=== PATIENT | female | born 1935 | race Caucasian/White ===

== ENCOUNTER 2018-03-16 09:00 | Inpatient (IN) ==
--- NOTE | 2018-03-16 09:27 | ED ---
HPI General Chief complaint: Weakness Stated complaint: General Weakness/Evac Time Seen by Provider: 03/16/18 09:14 History of Present Illness HPI narrative: Patient presents to the emergency department for generalized weakness. Daughter states that she was recently treated for UTI and finished antibiotics approximately 2 weeks ago. Daughter also states that she found her mother on the floor this morning and she has been progressively weak. Patient denies fall, and she lives alone. She denies chest pain, abdominal pain, shortness of breath, headache. States that on Friday she had a large amount of stool was brown, since resolved. Related Data Home Medications Medication Instructions Recorded Confirmed donepezil 5 mg PO DAILY 03/16/18 03/16/18 levothyroxine 25 mcg PO DAILY 03/16/18 03/16/18 lorazepam 1 mg PO HS 03/16/18 03/16/18 mirabegron [Myrbetriq] 25 mg PO HS 03/16/18 03/16/18 nebivolol 5 mg PO DAILY 03/16/18 03/16/18 olmesartan 40 mg PO DAILY 03/16/18 03/16/18 ranitidine HCl 150 mg PO DAILY 03/16/18 03/16/18 Allergies Allergy/AdvReac Type Severity Reaction Status Date / Time No Known Allergies Allergy Verified 03/16/18 09:23 Review of Systems ROS Unobtainable All other systems reviewed negative except as stated in HPI [facility] Medical History Medical History Anxiety (Acute) Dementia (Acute) Femur fracture, left (Acute) Hypertension (Acute) Hypothyroid (Acute) Urinary tract infection (Acute) Social History Social History Substance History: No History of Abuse Second Hand Smoke Exposure: Yes Smoking Status: Never smoker How Often Do You Have a Drink Containing Alcohol: 2 to 3 times a week Recent Travel in [facility] within the Last 8 Weeks: No Recent Out of Country Travel within the Last 8 Weeks: No Exam Narrative Exam Narrative: GENERAL: No acute distress SKIN: Focused skin assessment warm/dry. HEAD: Atraumatic. Normocephalic. EYES: Pupils equal and round. No scleral icterus. No injection or drainage. ENT: No nasal bleeding or discharge. Mucous membranes pink and moist. NECK: Trachea midline. No JVD. CARDIOVASCULAR: Regular rate and rhythm. No murmur appreciated. RESPIRATORY: No accessory muscle use. Clear to auscultation. Breath sounds equal bilaterally. GASTROINTESTINAL: Abdomen soft, non-tender, nondistended. Hepatic and splenic margins not palpable. MUSCULOSKELETAL: No obvious deformities. No clubbing. No cyanosis. No edema. NEUROLOGICAL: Awake and alert. No obvious cranial nerve deficits. Motor grossly within normal limits. Normal speech.Attempted to check strength bilat UE and LE but not able to fully assess secondary to patient effort. PSYCHIATRIC: Appropriate mood and affect; insight and judgment normal. Course Initial Documented Vital Signs Temperature 97.5 F L 03/16/18 09:06 Pulse Rate 72 03/16/18 09:06 Respiratory Rate 23 03/16/18 09:06 Blood Pressure 152/66 H 03/16/18 09:06 Pulse Oximetry 100 03/16/18 09:06 Last Documented Vital Signs Temperature 97.5 F L 03/16/18 09:06 Pulse Rate 66 03/16/18 12:22 Respiratory Rate 17 03/16/18 12:22 Blood Pressure 127/59 L 03/16/18 12:22 Pulse Oximetry 96 03/16/18 12:22 Medical Decision Making [facility] Narrative Medical decision making narrative: Patient presents to the emergency department with progressive generalized weakness. Patient placed on cardiac care unit nurse, continuous pulse ox, and IV access obtained. EKG, chest x-ray, head CT, labs ordered. Leukocytosis, decreased Hbg and HCT, elevated CK and MB, free T4 pending, ua negative. I have admitted the patient for observation. Blood cultures and lactic acid have been ordered and are pending at the time of admission, admit team to follow. Head CT negative for intracranial acute abnormality. Chest x-ray negative for acute abnormality. Lab Data Result diagrams: 03/16/18 09:40 03/16/18 10:24 Lab Results 03/16/18 03/16/18 03/16/18 Range/Units 09:40 10:24 10:29 WBC 13.4 H (4.0-11.0) th/mm3 RBC 4.01 (4.00-5.30) mil/mm3 Hgb 11.4 L (11.6-15.3) gm/dL Hct 33.9 L (35.0-46.0) % MCV 84.6 (80.0-100.0) fL MCH 28.4 (27.0-34.0) pg MCHC 33.6 (32.0-36.0) % RDW 14.5 (11.6-17.2) % Plt Count 391 (150-450) th/mm3 MPV 8.4 (7.0-11.0) fL Neut % (Auto) 80.4 H (16.0-70.0) % Lymph % (Auto) 8.0 L (9.0-44.0) % [place] % (Auto) 10.4 H (0.0-8.0) % Eos % (Auto) 0.4 (0.0-4.0) % Baso % (Auto) 0.8 (0.0-2.0) % Neut # (Auto) 10.8 H (1.8-7.7) th/mm3 Lymph # (Auto) 1.1 (1.0-4.8) th/mm3 [place] # (Auto) 1.4 H (0.0-0.9) th/mm3 Eos # (Auto) 0.1 (0.0-0.4) th/mm3 Baso # (Auto) 0.1 (0.0-0.2) th/mm3 WBC Differential . Differential Comment Auto diff final Sodium 129 L (136-145) meq/L Potassium 4.8 (3.5-5.1) meq/L Chloride 96 L (98-107) meq/L Carbon Dioxide 22.4 (21.0-32.0) meq/L Anion Gap 11 (5-15) meq/L BUN 13 (7-18) mg/dL Creatinine 0.67 (0.50-1.00) mg/dL Estimated GFR 84 L (>89) mL/min Random Glucose 86 (74-106) mg/dL Calcium 8.8 (8.5-10.1) mg/dL Magnesium 1.9 (1.5-2.5) mg/dL Total Bilirubin 0.4 (0.2-1.0) mg/dL AST 28 (15-37) U/L ALT 33 (10-53) U/L Alkaline Phosphatase 70 (45-117) U/L Total Creatine Kinase 262 H (26-192) U/L CK-MB (CK-2) 8.2 H (0.5-3.6) ng/mL CK-MB (CK-2) % 3.1 (0.0-4.0) % Troponin I Less than 0.02 L (0.02-0.05) ng/mL Total Protein 6.3 L (6.4-8.2) g/dL Albumin 3.1 L (3.4-5.0) g/dL TSH 2.910 (0.358-3.740) uIU/mL Urine Color Yellow (Yellw/Straw) Urine Clarity Clear (Clear) Urine pH 5.0 (5.0-8.5) Ur Specific [place] 1.012 (1.002-1.035) Urine Protein Negative (Neg-Trace) mg/dL Urine Glucose (UA) Negative (Negative) mg/dL Urine Ketones Negative (Negative) mg/dL Urine Occult Blood Negative (Negative) Urine Nitrate Negative (Negative) Urine Bilirubin Negative (Negative) Urine Urobilinogen Less than 2 (Less than 2) mg/dL Ur Leukocyte Esterase Negative (Negative) Urine RBC Less than 1 (0-3) /hpf Urine WBC 1 (0-5) /hpf Micro UA Comment Cath-culture not ind Urine Culture Comments Cath-cult not ind Imaging Data Radiologist's impression: Chest X-Ray 03/16/18 09:23 CONCLUSION: No acute cardiopulmonary process Head CT 03/16/18 09:23 CONCLUSION: Stable noncontrast head CT. No acute intracranial abnormality is identified. ECG Data Attestation: I personally reviewed and interpreted this ECG as follows: Discharge Plan Discharge Disposition Patient Disposition: 30 Still Patient Discharge Condition Condition: Stable Discharge Details Diagnosis: Weakness, Hyponatremia, Altered mental state, Leukocytosis Physicians Team ED Provider: Marjorie Kent Primary Care Provider: James Thornton Attending Provider: Hellen Posadas Status ED Status: Admitted Observation Patient
[2018-03-16 09:56] LABS: Baso # (Auto) 0.1 th/mm3 (0.0-0.2); Baso % (Auto) 0.8 % (0.0-2.0); Eos # (Auto) 0.1 th/mm3 (0.0-0.4); Eos % (Auto) 0.4 % (0.0-4.0); Hematocrit 33.9 % (35.0-46.0); Hemoglobin 11.4 gm/dL (11.6-15.3); Lymph # (Auto) 1.1 th/mm3 (1.0-4.8); Mean Corpuscular HGB Conc 33.6 % (32.0-36.0); Mean Corpuscular Hemoglobin 28.4 pg (27.0-34.0); Mean Corpuscular Volume 84.6 fL (80.0-100.0); Mean Platelet Volume 8.4 fL (7.0-11.0); Mono # (Auto) 1.4 th/mm3 (0.0-0.9); Mono % (Auto) 10.4 % (0.0-8.0); Neut # (Auto) 10.8 th/mm3 (1.8-7.7); Neut % (Auto) 80.4 % (16.0-70.0); Platelet Count 391 th/mm3 (150-450); Red Blood Count 4.01 mil/mm3 (4.00-5.30); Red Cell Distribution Width 14.5 % (11.6-17.2); White Blood Count 13.4 th/mm3 (4.0-11.0)
--- NOTE | 2018-03-16 10:10 | XR ---
EXAM DATE: 03/16/2018 9:57 AM EDT AGE/SEX: 82 years / Female INDICATIONS: Weakness, short of breath, confusion. CLINICAL DATA: This is the patient's initial encounter. Patient reports that signs and symptoms have been present for 2 days and indicates a pain score of 0/10. MEDICAL/SURGICAL HISTORY: None. None. COMPARISON: No prior exams available for comparison. FINDINGS: A single AP view of the chest demonstrates the lungs to be symmetrically aerated without evidence of mass, infiltrate or effusion. Heart size is upper limits of normal. Dense calcification of the thorac ic aorta. Osseous structures are intact with a probable bone island in the proximal left humerus CONCLUSION: No acute cardiopulmonary process Electronically signed by: Andrew Pacheco MD 03/16/2018 10:09 AM EDT
[2018-03-16 10:47] LABS: Bilirubin,Urine Negative (Negative); Clarity,Urine Clear (Clear); Color,Urine Yellow (Yellw/Straw); Glucose,Urine (UA) Negative (Negative); Leukocyte Esterase,Urine Negative (Negative); Nitrite,Urine Negative (Negative); Specific Gravity,Urine 1.012 (1.002-1.035)
[2018-03-16 11:02] LABS: Albumin 3.1 g/dL (3.4-5.0); Anion Gap 11 meq/L (5-15); Aspartate Aminotransferase 28 U/L (15-37); Blood Urea Nitrogen 13 mg/dL (7-18); Calcium 8.8 mg/dL (8.5-10.1); Carbon Dioxide 22.4 meq/L (21.0-32.0); Chloride 96 meq/L (98-107); Glomerular Filtration Rate 84 mL/min (>89); Glucose,Random 86 mg/dL (74-106); Magnesium 1.9 mg/dL (1.5-2.5); Potassium 4.8 meq/L (3.5-5.1); Sodium 129 meq/L (136-145)
[2018-03-16 11:11] LABS: Alanine Aminotransferase 33 U/L (10-53); Alkaline Phosphatase 70 U/L (45-117); Total Protein 6.3 g/dL (6.4-8.2)
--- NOTE | 2018-03-16 11:13 | CT ---
EXAM DATE: 03/16/2018 10:21 AM EDT AGE/SEX: 82 years / Female INDICATIONS: General weakness for one month. CLINICAL DATA: This is the patient's initial encounter. Patient reports that signs and symptoms have been present for 1 day and indicates a pain score of 0/10. MEDICAL/SURGICAL HISTORY: Hypertension. None. RADIATION DOSE: 33.94 CTDI (mGy) COMPARISON: [facility], MR BRAIN W/O CONTRAST, 02/01/2016. [facility] [place] BRAIN W/O CONTRAST, 03/03/2011. . TECHNIQUE: CT of the head without contrast. Using automated exposure control and adjustment of the mA and/or kV according to patient size, radiation dose was kept as low as reasonably achievable to ob tain optimal diagnostic quality images. DICOM format image data is available electronically for revi ew and comparison. FINDINGS: Cerebrum: There is mild generalized atrophy and ventricles are normal given the degree of atrophy. M ild periventricular white matter change is present. No midline shift, mass lesion, hemorrhage or acu te infarction. No extraaxial fluid collections are seen. Posterior Fossa: The cerebellum and brainstem demonstrate no acute abnormality. The 4th ventricle is midline. The cerebellopontine angle is within normal limits. Extracranial: The visualized sinuses are clear. Skull: The calvaria is intact. No skull fracture. CONCLUSION: Stable noncontrast head CT. No acute intracranial abnormality is identified. Electronically signed by: Elliott Monzon MD 03/16/2018 11:11 AM EDT
[2018-03-16 11:24] LABS: CKMB Percent 3.1 % (0.0-4.0); Creatine Kinase MB 8.2 ng/mL (0.5-3.6)
--- NOTE | 2018-03-16 12:58 | P.HPFP ---
History of Present Illness Primary Care Physician: James Thornton MD <Hellen Posadas - 03/17/18 14:21> James Thornton MD <Bruno Foss - 03/16/18 12:58> History of Present Illness: Patient is an 82-year-old female with a history of dementia, alcoholism, and recent UTI treated with a two-week course of unknown antibiotic, who presents to the ED with her daughter after daughter found the patient on ground. Daughter reports mom has been becoming weaker and weaker which started a month ago, she also reports frequent and repeated falls in the last 2 months. After finding mother on ground daughter attempted to lift the patient and while trying to pick her up the patient fell forward and hit her forehead against the wall. Daughter reports no loss of consciousness. According to the patient she was trying to mixing picker tender a litter box on the ground and denies falling. It is unknown how long the patient was on the ground. Her daughter states the patient has not been eating very much lately and according to the patient she has not eaten since yesterday. Patient has history of alcohol abuse, daughter also reports that the patient has been sober for the last 6 years but just 2 weeks ago the patient asked her son to open up a bottle of wine for her, the son refused and took the alcohol with him to get it out of the house. Daughter denies any smell of alcohol on the mother's breath when she found her on the ground. During her period of alcoholism the patient was drinking 2 bottles of vodka a day and this occurred for 10 years. Daughter reports that mother has had episodes of incontinence and has soiled herself with feces recently, which she described as liquid, as well as frequent urination. Of note, daughter Jessica is patient's legal surrogate. <Bruno Foss - 03/16/18 23:20> - Diagnosis (1) Hyponatremia (2) Syncope (3) Altered mental state (4) Weakness (5) Dementia (6) Hypothyroid (7) Leukocytosis <Hellen Posadas - 03/17/18 14:21> (1) Hyponatremia (2) Syncope (3) Altered mental state (4) Weakness (5) Dementia (6) Hypothyroid (7) Leukocytosis <Bruno Foss - 03/16/18 22:00> Inpatient Certification: I certify that the inpatient services were ordered in accordance with Medicare regulations governing the order. This includes certification that hospital inpatient services are reasonable and necessary and in the case of services not specified as inpatient-only under 42 CFR 419.22(n), that they are appropriately provided as inpatient services in accordance to with the 2-midnight benchmark under 43 CFR 412.3(e) <Hellen Posadas Silvano - 03/17/18 14:21> I certify that the inpatient services were ordered in accordance with Medicare regulations governing the order. This includes certification that hospital inpatient services are reasonable and necessary and in the case of services not specified as inpatient-only under 42 CFR 419.22(n), that they are appropriately provided as inpatient services in accordance to with the 2-midnight benchmark under 43 CFR 412.3(e) <Bruno Foss 03/16/18 12:58> Review of Systems Review of systems was garnered by both patient and her daughter Jessica <Bruno Foss 03/16/18 14:46> Constitutional: Denies body ache(s), Denies chills, Denies daytime sleepiness, Denies excessive sweating, Denies fever(s), Denies headache(s), Denies increased appetite <Bruno Foss 03/16/18 14:46> Comments: Patient has not eaten since yesterday and per daughter has eaten less and less over the last months. <Bruno Foss 03/16/18 14:46> Eyes: Denies blurry vision, Denies change in vision <Bruno Foss 03/16/18 14:46> Cardiovascular: Denies chest pain, Denies irregular heart rhythm, Denies rapid, pounding, or irregular heartbeat, Denies shortness of breath <Bruno Foss 03/16/18 14:46> Gastrointestinal: Denies abdominal pain, Denies black, tarry stools, Denies bright, red blood in stools <Bruno Foss 03/16/18 14:46> Comments: Loose watery diarrhea <Bruno Foss 03/16/18 14:46> Comments: Frequent urination <Bruno Foss 03/16/18 14:46> Skin/Breast: Reports skin ulcer, Reports sores, Reports wounds <FossBruno Meng 03/16/18 14:46> Neurologic: Reports numbness, Reports unsteadiness, Denies abnormal hearing, Denies abnormal speech, Denies loss of vision, Denies seizure-like activity < Foss,Bruno Meng 03/16/18 14:46> Comments: Patient reports numbness in both hands bilaterally that has been seen by her PCP , patient denies weakness. <Bruno Foss 03/16/18 14:46> Psychiatric: Reports change in appetite, Denies behavioral changes <FossBruno stewart 03/16/18 14:46> Comments: Patient has not eaten since yesterday and has had changes in appetite over the last 2 months where she is eating less and less. <FossBruno stewart 03/16/18 14:46> PMFSH - History History Provided By: Patient, Family Member <Bruno Foss 03/16/18 12:58> - Medical History Medical History: Medical History (Last Reviewed 03/17/18 @ 07:45 by Nii Fierro) Anxiety Dementia Femur fracture, left Hypertension Hypothyroid Urinary tract infection <Hellen Posadas - 03/17/18 14:19> Medical History (Last Updated 03/16/18 @ 09:28 by Amber Lowe) Anxiety Dementia Femur fracture, left Hypertension Hypothyroid Urinary tract infection <Bruno Foss 03/16/18 12:58> - Tobacco History Second Hand Smoke Exposure: Yes <Bruno Foss 03/16/18 12:58> Smoking Status: Never smoker <FossBruno stewart 03/16/18 12:58> - Alcohol History How Often Do You Have a Drink Containing Alcohol: 2 to 3 times a week <Bruno Foss 03/16/18 12:58> - Substance Use History Substance History: Past History <Bruno Foss 03/16/18 14:46> - Travel History Recent Travel in the [facility] Within the Last 8 Weeks: No <Bruno Foss 12:58> Recent Travel Out of the Country Within the Last 8 Weeks: No <Bruno Foss 03/16/18 12:58> - Immunization History Tetanus Immunization: Unsure <Bruno Foss O - 03/16/18 12:58> Hx Influenza Vaccine This Season: No <Bruno Foss O - 03/16/18 12:58> Medications and Allergies Allergies Allergy/AdvReac Type Severity Reaction Status Date / Time No Known Allergies Allergy Verified 03/16/18 09:23 <Hellen Posadas M - 03/17/18 14:21> Home Medications Medication Instructions Recorded Confirmed Type donepezil 5 mg PO DAILY 03/16/18 03/16/18 History levothyroxine 25 mcg PO DAILY 03/16/18 03/16/18 History lorazepam 1 mg PO HS 03/16/18 03/16/18 History mirabegron [Myrbetriq] 25 mg PO HS 03/16/18 03/16/18 History nebivolol 5 mg PO DAILY 03/16/18 03/16/18 History olmesartan 40 mg PO DAILY 03/16/18 03/16/18 History ranitidine HCl 150 mg PO DAILY 03/16/18 03/16/18 History <Hellen Posadas M - 03/17/18 14:21> Active Medications: Active Medications Acetaminophen (Tylenol) 650 mg PO Q4H PRN PRN Reason: Temp > 100.4 Donepezil HCl (Aricept) 5 mg PO DAILY [facility] Last Admin: 03/17/18 11:49 Dose: 5 mg Famotidine (Pepcid) 20 mg PO DAILY [facility] Last Admin: 03/17/18 11:49 Dose: 20 mg Lactobacillus Acidophilus (Lactinex) 1 tab PO TID [facility] Last Admin: 03/17/18 11:49 Dose: 1 tab Levothyroxine Sodium (Synthroid) 25 mcg PO DAILY@0600 [facility] Last Admin: 03/17/18 06:19 Dose: 25 mcg Lorazepam (Ativan) 1 mg PO HS [facility] Last Admin: 03/16/18 23:21 Dose: 1 mg Losartan Potassium (Cozaar) 100 mg PO DAILY [facility] Last Admin: 03/17/18 11:48 Dose: 100 mg Nebivolol (Bystolic) 5 mg PO DAILY [facility] Last Admin: 03/17/18 11:49 Dose: 5 mg Ondansetron HCl (Zofran Odt) 4 mg PO Q6H PRN PRN Reason: NAUSEA OR VOMITING Senna/Docusate Sodium (Anyi-Colace) 1 tab PO BID PRN PRN Reason: CONSTIPATION Tolterodine Tartrate (Detrol La) 2 mg PO [facility] Last Admin: 03/16/18 23:21 Dose: 2 mg <Hellen Posadas M - 03/17/18 14:19> Exam Vital signs: Vital Signs 03/16/18 16:46 03/16/18 20:00 03/16/18 23:30 Temperature 99.1 F 98.1 F 99.4 F Pulse Rate 80 65 80 Respiratory Rate 16 17 16 Blood Pressure 142/62 H 152/66 H 156/70 H Pulse Oximetry 97 95 95 03/17/18 01:48 03/17/18 04:00 03/17/18 07:40 Temperature 98.1 F Pulse Rate 87 88 137 H Respiratory Rate 15 Blood Pressure 144/66 H Pulse Oximetry 96 03/17/18 08:00 03/17/18 12:00 Temperature 97.5 F L 97.7 F Pulse Rate 74 67 Respiratory Rate 16 18 Blood Pressure 157/67 H 163/70 H Pulse Oximetry 96 Intake & Output 03/16/18 03/17/18 03/17/18 18:59 06:59 18:59 Weight 50.7 kg Other: # Voids 1 Date of Last Bowel Movement 03/16/18 03/16/18 Weight On Admission 50.7 kg <Hellen Posadas M - 03/17/18 14:21> Vital Signs 03/16/18 09:06 03/16/18 09:28 03/16/18 09:38 Temperature 97.5 F L Pulse Rate 72 69 Respiratory Rate 23 18 Blood Pressure 152/66 H 145/65 H Pulse Oximetry 100 99 98 03/16/18 12:22 Temperature Pulse Rate 66 Respiratory Rate 17 Blood Pressure 127/59 L Pulse Oximetry 96 Intake & Output 03/15/18 03/16/18 03/16/18 18:59 06:59 18:59 Weight 49.895 kg <Bruno Foss - 03/16/18 12:58> - Constitutional no acute distress, thin, cooperative, somnolent <Bruno Foss - 03/16/18 14: 46> - Routine HEENT Exam Head: Present: normocephalic, atraumatic. Absent: abrasion, laceration, hematoma, facial swelling <Bruno Foss 03/16/18 14:46> Eye: Present: EOMI, PERRL, normal accommodation. Absent: scleral injection, conjunctivae pink, periorbital ecchymosis, periorbital swelling <PipoBruno Fan 03/16/18 14:46> ENT: Present: mucous membranes moist <Bruno Foss 03/16/18 14:46> Comments: Patient's head was examined as well as within her hair and no bruises or lacerations were appreciated <FossBruno Fan 03/16/18 14:46> - Routine Neck Exam Absent: lymphadenopathy <PipoBruno Fan 03/16/18 14:46> - Routine Chest/Breast/Axilla Exam Chest wall: Absent: tenderness, mass <PipoBruno Fan 03/16/18 14:46> - Routine Respiratory Exam Present: CTA bilaterally. Absent: accessory muscle use, decreased breath sounds , prolonged expiratory phase, rales, respiratory distress, rhonchi, stridor, crackles, distant breath sounds, diminished air movement <Bruno Foss 14:46> - Routine Cardiovascular Exam Present: RRR, S1, S2. Absent: murmur, gallop, rubs <Bruno Foss 03/16/18 14:46> - Routine Abdominal Exam Present: soft, normoactive bowel sounds. Absent: tenderness, distended, rebound , guarding <PipoBruno Fan 03/16/18 14:46> - Routine Extremities Exam Present: pulses intact. Absent: cyanosis, clubbing, edema, calf tenderness < PipoBruno Fan 03/16/18 14:46> Comments: Patient has multiple scars and healing wounds on both knees bilaterally as well as ankles bilaterally <FossBruno Fan 03/16/18 14:46> - Routine Skin Exam Present: erythema, lesions, scars, wounds, cracked. Absent: intact <Foss Bruno Fan 03/16/18 14:46> Comments: Patient has scars in previously healing wounds on both knees from previous falls, as well as a stage I sacral ulcer. <Bruno Foss - 03/16/18 14:46> - Routine Neurological Exam Present: alert, CN II-XII intact, motor deficit, normal reflexes, altered mental status, normal speech. Absent: oriented X3, sensory deficit <Bruno Foss - 03/16/18 14:46> Patient alert and oriented 2 to self and location not oriented to time, patient believed it was 1938. Motor function globally intact with exception of left arm not being able to be raised beyond the plane of the shoulder or overhead. Patient denies pain upon use of the arm. There was some confusion upon answering questions by the patient, and she is a poor historian. All other portions of the neurologic exam were grossly normal. <Bruno Foss - 03/16/18 14:46> - Routine Psychiatric Exam Present: cooperative, good insight. Absent: normal affect, normal thought process, good judgment, anxious, agitated, paranoid <Bruno Foss - 03/16/18 14:46> Results - Labs Result diagrams: 03/17/18 06:05 03/17/18 06:05 <Hellen Posadas M - 03/17/18 14:21> Abnormal lab results 03/16/18 03/17/18 03/17/18 Range/Units 17:07 00:03 06:05 RBC 3.70 L (4.00-5.30) mil/mm3 Hgb 10.9 L (11.6-15.3) gm/dL Hct 32.1 L (35.0-46.0) % Valley % (Auto) 11.9 H (0.0-8.0) % Valley # (Auto) 1.0 H (0.0-0.9) th/mm3 Sodium 129 L (136-145) meq/L Chloride 96 L (98-107) meq/L Estimated GFR 84 L (>89) mL/min Total Creatine Kinase 275 H (26-192) U/L CK-MB (CK-2) 8.2 H 5.2 H (0.5-3.6) ng/mL Troponin I Less than 0.02 L Less than 0.02 L (0.02-0.05) ng/mL Total Protein 6.3 L (6.4-8.2) g/dL Albumin 3.1 L (3.4-5.0) g/dL 03/17/18 Range/Units 06:05 RBC (4.00-5.30) mil/mm3 Hgb (11.6-15.3) gm/dL Hct (35.0-46.0) % Valley % (Auto) (0.0-8.0) % Valley # (Auto) (0.0-0.9) th/mm3 Sodium 130 L (136-145) meq/L Chloride 96 L (98-107) meq/L Estimated GFR (>89) mL/min Total Creatine Kinase (26-192) U/L CK-MB (CK-2) (0.5-3.6) ng/mL Troponin I (0.02-0.05) ng/mL Total Protein (6.4-8.2) g/dL Albumin (3.4-5.0) g/dL Short CBC 03/17/18 Range/Units 06:05 WBC 8.0 (4.0-11.0) th/mm3 Hgb 10.9 L (11.6-15.3) gm/dL Hct 32.1 L (35.0-46.0) % Plt Count 325 (150-450) th/mm3 BMP 03/16/18 03/17/18 17:07 06:05 Sodium 129 L 130 L Potassium 4.8 4.3 Chloride 96 L 96 L Carbon Dioxide 22.4 22.8 BUN 13 11 Creatinine 0.67 0.57 Calcium 8.8 8.8 Cardiac Enzymes 03/16/18 03/16/18 03/17/18 Range/Units 09:40 17:07 00:03 Total Creatine Kinase Cancelled Cancelled 275 H CK-MB (CK-2) 8.2 H 5.2 H (0.5-3.6) ng/mL Troponin I Less than 0.02 L Less than 0.02 L (0.02-0.05) ng/mL Liver Function 03/16/18 Range/Units 17:07 Total Bilirubin 0.4 (0.2-1.0) mg/dL AST 28 (15-37) U/L ALT 33 (10-53) U/L Alkaline Phosphatase 70 (45-117) U/L Albumin 3.1 L (3.4-5.0) g/dL <Hellen Posadas - 03/17/18 14:21> Abnormal lab results 03/16/18 03/16/18 Range/Units 09:40 10:24 WBC 13.4 H (4.0-11.0) th/mm3 Hgb 11.4 L (11.6-15.3) gm/dL Hct 33.9 L (35.0-46.0) % Neut % (Auto) 80.4 H (16.0-70.0) % Lymph % (Auto) 8.0 L (9.0-44.0) % Valley % (Auto) 10.4 H (0.0-8.0) % Neut # (Auto) 10.8 H (1.8-7.7) th/mm3 Valley # (Auto) 1.4 H (0.0-0.9) th/mm3 Sodium 129 L (136-145) meq/L Chloride 96 L (98-107) meq/L Estimated GFR 84 L (>89) mL/min Total Creatine Kinase 262 H (26-192) U/L CK-MB (CK-2) 8.2 H (0.5-3.6) ng/mL Troponin I Less than 0.02 L (0.02-0.05) ng/mL Total Protein 6.3 L (6.4-8.2) g/dL Albumin 3.1 L (3.4-5.0) g/dL Short CBC 03/16/18 Range/Units 09:40 WBC 13.4 H (4.0-11.0) th/mm3 Hgb 11.4 L (11.6-15.3) gm/dL Hct 33.9 L (35.0-46.0) % Plt Count 391 (150-450) th/mm3 BMP 03/16/18 10:24 Sodium 129 L Potassium 4.8 Chloride 96 L Carbon Dioxide 22.4 BUN 13 Creatinine 0.67 Calcium 8.8 Cardiac Enzymes 03/16/18 Range/Units 10:24 Total Creatine Kinase 262 H (26-192) U/L CK-MB (CK-2) 8.2 H (0.5-3.6) ng/mL Troponin I Less than 0.02 L (0.02-0.05) ng/mL Liver Function 03/16/18 Range/Units 10:24 Total Bilirubin 0.4 (0.2-1.0) mg/dL AST 28 (15-37) U/L ALT 33 (10-53) U/L Alkaline Phosphatase 70 (45-117) U/L Albumin 3.1 L (3.4-5.0) g/dL Urine 03/16/18 Range/Units 10:29 Urine Color Yellow (Yellw/Straw) Urine Clarity Clear (Clear) Urine pH 5.0 (5.0-8.5) Ur Specific Olmitz 1.012 (1.002-1.035) Urine Protein Negative (Neg-Trace) mg/dL Urine Glucose (UA) Negative (Negative) mg/dL <Bruno Foss 03/16/18 12:58> - Imaging Impressions Carotid Doppler Study 03/16/18 00:00 CONCLUSION: 1. Right Internal Carotid Artery: Findings indicate <50% stenosis. 2. Left Internal Carotid Artery: Findings indicate <50% stenosis. 3. At times, irregular heart rate is documented. Suggest correlating with EKG. <Hellen Posadas - 03/17/18 14:21> Impressions Chest X-Ray 03/16/18 09:23 CONCLUSION: No acute cardiopulmonary process Head CT 03/16/18 09:23 CONCLUSION: Stable noncontrast head CT. No acute intracranial abnormality is identified. <Bruno Foss 03/16/18 12:58> Caprini VTE Risk Assessment Caprini VTE Risk Assessment: Moderate/High Risk (score >= 2) <Bruno Foss 03/16/18 23:20> Caprini Risk Assessment Model: Point Value = 1 Point Value = 2 Point Value = 3 Point Value = 5 Age 41-60 Minor surgery BMI > 25 kg/m2 Swollen legs Varicose veins or History of unexplained or recurrent spontaneous Oral contraceptives or hormone replacement Sepsis (< 1 month) Serious lung disease, including pneumonia (< 1 month) Abnormal pulmonary function Acute myocardial infarction Congestive heart failure (< 1 month) History of inflammatory bowel disease Medical patient at bed rest Age 61-74 Arthroscopic surgery Major open surgery (> 45 min) Laparoscopic surgery (> 45 min) Malignancy Confined to bed (> 72 hours) Immobilizing plaster cast Central venous access Age >= 75 History of VTE Family history of VTE Factor V Leiden Prothrombin [id number] Lupus anticoagulant Anticardiolipin antibodies Elevated serum homocysteine Heparin-induced thrombocytopenia Other congenital or acquired thrombophilia Stroke (< 1 month) Elective arthroplasty Hip, pelvis, or leg fracture Acute spinal cord injury (< 1 month) <Hellen Posadas M - 03/17/18 14:21> Point Value = 1 Point Value = 2 Point Value = 3 Point Value = 5 Age 41-60 Minor surgery BMI > 25 kg/m2 Swollen legs Varicose veins or History of unexplained or recurrent spontaneous Oral contraceptives or hormone replacement Sepsis (< 1 month) Serious lung disease, including pneumonia (< 1 month) Abnormal pulmonary function Acute myocardial infarction Congestive heart failure (< 1 month) History of inflammatory bowel disease Medical patient at bed rest Age 61-74 Arthroscopic surgery Major open surgery (> 45 min) Laparoscopic surgery (> 45 min) Malignancy Confined to bed (> 72 hours) Immobilizing plaster cast Central venous access Age >= 75 History of VTE Family history of VTE Factor V Leiden Prothrombin [id number] Lupus anticoagulant Anticardiolipin antibodies Elevated serum homocysteine Heparin-induced thrombocytopenia Other congenital or acquired thrombophilia Stroke (< 1 month) Elective arthroplasty Hip, pelvis, or leg fracture Acute spinal cord injury (< 1 month) <Bruno Foss - 03/16/18 12:58> Prophylaxis Regimen: Total Risk Factor Score Risk Level Prophylaxis Regimen 0-1 Low Early ambulation 2 Moderate Order ONE of the following: *Sequential Compression Device (SCD) *Heparin 5000 units SQ BID 3-4 Higher Order ONE of the following medications: *Heparin 5000 units SQ TID *Enoxaparin/Lovenox 40 mg SQ daily (WT < 150 kg, CrCl > 30 mL/min) *Enoxaparin/Lovenox 30 mg SQ daily (WT < 150 kg, CrCl > 10-29 mL/min) *Enoxaparin/Lovenox 30 mg SQ BID (WT < 150 kg, CrCl > 30 mL/min) AND/OR *Sequential Compression Device (SCD) 5 or more Highest Order ONE of the following medications: *Heparin 5000 units SQ TID (Preferred with Epidurals) *Enoxaparin/Lovenox 40 mg SQ daily (WT < 150 kg, CrCl > 30 mL/min) *Enoxaparin/Lovenox 30 mg SQ daily (WT < 150 kg, CrCl > 10-29 mL/min) *Enoxaparin/Lovenox 30 mg SQ BID (WT < 150 kg, CrCl > 30 mL/min) AND *Sequential Compression Device (SCD) <Heleln Posadas - 03/17/18 14:21> Total Risk Factor Score Risk Level Prophylaxis Regimen 0-1 Low Early ambulation 2 Moderate Order ONE of the following: *Sequential Compression Device (SCD) *Heparin 5000 units SQ BID 3-4 Higher Order ONE of the following medications: *Heparin 5000 units SQ TID *Enoxaparin/Lovenox 40 mg SQ daily (WT < 150 kg, CrCl > 30 mL/min) *Enoxaparin/Lovenox 30 mg SQ daily (WT < 150 kg, CrCl > 10-29 mL/min) *Enoxaparin/Lovenox 30 mg SQ BID (WT < 150 kg, CrCl > 30 mL/min) AND/OR *Sequential Compression Device (SCD) 5 or more Highest Order ONE of the following medications: *Heparin 5000 units SQ TID (Preferred with Epidurals) *Enoxaparin/Lovenox 40 mg SQ daily (WT < 150 kg, CrCl > 30 mL/min) *Enoxaparin/Lovenox 30 mg SQ daily (WT < 150 kg, CrCl > 10-29 mL/min) *Enoxaparin/Lovenox 30 mg SQ BID (WT < 150 kg, CrCl > 30 mL/min) AND *Sequential Compression Device (SCD) <Bruno Foss - 03/16/18 12:58> Assessment and Plan - Assessment (1) Hyponatremia Code(s): E87.1 - Hypo-osmolality and hyponatremia Status: Acute (2) Syncope Code(s): R55 - Syncope and collapse Status: Acute (3) Altered mental state Code(s): R41.82 - Altered mental status, unspecified Status: Acute (4) Weakness Code(s): R53.1 - Weakness Status: Acute (5) Dementia Code(s): F03.90 - Unspecified dementia without behavioral disturbance Status: Acute (6) Hypothyroid Code(s): E03.9 - Hypothyroidism, unspecified Status: Acute (7) Leukocytosis Code(s): D72.829 - Elevated white blood cell count, unspecified Status: Acute <Hellen Posadas - 03/17/18 14:21> (1) Hyponatremia Code(s): E87.1 - Hypo-osmolality and hyponatremia Status: Acute Plan: Patient with dementia presents with recent increase in change in mental status according to daughter. Daughter reports increased confusion and frequent falls. On admission patient had a sodium of 129. Recent confusion likely do due to hyponatremia. Patient reports not eating since yesterday and daughter reports decreased appetite. - Free fluid restriction to 1500 mL per day - Monitor BMP daily, trend sodium - Frequent neuro checks - Fall precautions (2) Syncope Code(s): R55 - Syncope and collapse Status: Acute Plan: This patient has a two-month history of frequent falls, and was found by daughter on the ground. The time on the ground was unknown. Patient does not know how she is on the ground but believes it was due to trying to bend down to get the cat litter. Patient is poor historian and confused throughout the interview. Alert and oriented only to self. Possible stroke unlikely due to no neurological deficits and no and no abnormalities noted on CT of the head versus ACS. ACS unlikely, Patient experienced no chest pain in the ED troponins were negative, EKG was normal, and echo is pending. (3) Altered mental state Code(s): R41.82 - Altered mental status, unspecified Status: Acute Plan: This patient has a history of Alzheimer's dementia and according to daughter is an altered mental status is below baseline. In the ED patient was confused and recollection of events or inconsistent. Patient is currently under donezepil treatment at home. Hyponatremia to be likely cause of exacerbated altered mental status from baseline. Patient has no gross motor neurological deficit. Only motor deficit his left arm does not raise above the plane of the shoulder. Currently no acute signs of stroke. Noncontrast CT of the head showed no acute intracranial abnormality. Brain MRI scheduled and pending. Patient does have history of recent UTI, which was treated with a two-week course of an unknown antibiotic. On admission patient does not meet criteria for sepsis. White count slightly elevated at 13.4. In the ED urinalysis showed no acute process. Blood cultures pending. Patient does have history of alcohol abuse, was sober for the last 6 years but according to daughter has shown interest in alcohol the last 2 weeks by asking son open bottle of wine. Intoxication cannot be ruled out at this moment. -Follow-up with drug screen -Continue home donezepil -Follow-up with blood cultures -Frequent neuro checks -See plan above for hyponatremia (4) Weakness Code(s): R53.1 - Weakness Status: Acute Plan: See plan above for hyponatremia and altered mental status. (5) Dementia Code(s): F03.90 - Unspecified dementia without behavioral disturbance Status: Acute Plan: This patient has a history of Alzheimer's dementia. According to daughter patient is not altered mental status away from baseline. At home patient was treated with donezepil. This patient currently lives alone and suffered multiple falls and physical exam has several abrasions and wounds on these and lower legs bilaterally. Patient also has stage I sacral ulcer indicating little to no ambulation. PT and OT evaluation recommendations appreciated. Patient will continue home regimen while inpatient. - Continue donezepil - Monitor for any changes in baseline mental status -Follow OT and PT recommendations -Consult case management for possible placement (6) Hypothyroid Code(s): E03.9 - Hypothyroidism, unspecified Status: Acute Plan: Patient has history of hypothyroid disease. TSH in the ED was 2.91. Patient not currently on the levothyroxine regimen at home. No indication for thyroid hormone replacement at this time. (7) Leukocytosis Code(s): D72.829 - Elevated white blood cell count, unspecified Status: Acute Plan: Patient has elevated white count of 13.4 and admission. On admission patient was not tachycardic, febrile, or tachypneic. Patient does not meet criteria for sepsis, and there is currently no source of infection. Patient has history of prior UTI treated with unknown antibiotic which resolved 2 weeks ago. UA in ED showed no acute process. Chest x-ray showed no acute cardiopulmonary process. Likely cause of leukocytosis is a stress reaction. -Continue to monitor vitals -Continue to trend white count -Workup if patient spikes fever <Bruno Foss - 03/16/18 22:00> - Attending Attestation The exam, history, and the medical decision-making described in the above note were completed with the assistance of the resident physician. I reviewed and agree with the findings presented. I attest that I had a [id number] encounter with the patient on the same day, and personally performed and documented my assessment and findings in the medical record. Patient was seen at the time of admission with the residents in the emergency department. Her daughter was present in the room. <Hellen Posadas M - 03/17/18 14:19> <Bruno Foss O - Last Filed: 03/16/18 22:00> (3) Altered mental state Qualifiers: Altered mental status type: unspecified Qualified Code(s): R41.82 - Altered mental status, unspecified (7) Leukocytosis Qualifiers: Leukocytosis type: unspecified Qualified Code(s): D72.829 - Elevated white blood cell count, unspecified <Hellen Posadas M - Last Filed: 03/17/18 14:21> (3) Altered mental state Qualifiers: Altered mental status type: unspecified Qualified Code(s): R41.82 - Altered mental status, unspecified (7) Leukocytosis Qualifiers: Leukocytosis type: unspecified Qualified Code(s): D72.829 - Elevated white blood cell count, unspecified <Bruno Foss O - Last Filed: 03/16/18 22:00> (3) Altered mental state Qualifiers: Altered mental status type: unspecified Qualified Code(s): R41.82 - Altered mental status, unspecified (7) Leukocytosis Qualifiers: Leukocytosis type: unspecified Qualified Code(s): D72.829 - Elevated white blood cell count, unspecified <Hellen Posadas - Last Filed: 03/17/18 14:21> (3) Altered mental state Qualifiers: Altered mental status type: unspecified Qualified Code(s): R41.82 - Altered mental status, unspecified (7) Leukocytosis Qualifiers: Leukocytosis type: unspecified Qualified Code(s): D72.829 - Elevated white blood cell count, unspecified
[2018-03-16] MEDS ORDERED: Bisacodyl 10 MG Supp RECTAL PRN (13:00)
[2018-03-16] MEDS ORDERED: Acetaminophen 325 MG Tablet PO PRN (13:00)
[2018-03-16] MEDS ORDERED: Senna/Docusate Sodium 8.6/50 MG Tablet PO PRN (13:53)
--- NOTE | 2018-03-16 17:16 | US ---
EXAM DATE: 03/16/2018 4:26 PM EDT AGE/SEX: 82 years / Female INDICATIONS: Syncope. Weakness. CLINICAL DATA: This is the patient's initial encounter. Patient reports that signs and symptoms have been present for 1 day and indicates a pain score of 0/10. MEDICAL/SURGICAL HISTORY: Hypertension. Hypothyroidism. Anxiety. Dementia. Urinary tract infec tion. . Left femur fracture repair. COMPARISON: No prior exams available for comparison. VELOCITY PARAMETERS: ICA/CCA Ratio: Right 0.7 , Left 1.0 ICA: Right 69 cm/sec, Left 93 cm/sec CCA: Right 94 cm/sec, Left 95 cm/sec ECA: Right 78 cm/sec, Left 97 cm/sec Vertebral: Right 73 cm/sec antegrade, Left 65 cm/sec antegrade FINDINGS: Right Carotid: There is mild nodular calcified plaque in the mid common carotid artery with mild non calcified plaque in the proximal internal carotid artery. Heart rate is irregular. Left Carotid: There is mild to moderate calcified noncalcified plaque within the common carotid sandra ry with mild noncalcified and calcified plaque in the in the carotid bulb. The waveforms are within n ormal limits. Other: None. CONCLUSION: 1. Right Internal Carotid Artery: Findings indicate <50% stenosis. 2. Left Internal Carotid Artery: Findings indicate <50% stenosis. 3. At times, irregular heart rate is documented. Suggest correlating with EKG. Electronically signed by: Elliott Monzon MD 03/16/2018 5:15 PM EDT
[2018-03-16] MEDS: Lactobacillus Acidophilus/L. Spores Tablet PO SCH (18:05)
--- NOTE | 2018-03-16 18:50 | ECG ---
Date Performed: 03/16/2018 Time Performed: 10:02:34 PTAGE: 82 years EKG: Sinus rhythm WITH OCCASIONAL VENTRICULAR PREMATURE COMPLEXES POSSIBLE LEFT ATRIAL ENLARGEMENT BORDERLINE ECG Comp ared to PREVIOUS TRACING , sinus rate is faster, and the PVCs are now present. PREVIOUS TRACIN08/17/2016 [id number] DOCTOR: Sergey Mata Interpretating Date/Time 03/16/2018 18:49:14
[2018-03-16] MEDS ORDERED: Senna/Docusate Sodium 8.6/50 MG Tablet PO SCH (21:00)
[2018-03-16] MEDS: Tolterodine Tartrate LA 2 MG Capsule PO SCH (23:21)
[2018-03-16] MEDS: LORazepam 1 MG Tablet PO SCH (23:21)
[2018-03-17 00:49] LABS: Creatine Kinase 275 U/L (26-192)
[2018-03-17 01:01] LABS: CKMB Percent 1.9 % (0.0-4.0); Creatine Kinase MB 5.2 ng/mL (0.5-3.6)
[2018-03-17 07:19] LABS: Baso # (Auto) 0.1 th/mm3 (0.0-0.2); Baso % (Auto) 1.2 % (0.0-2.0); Eos # (Auto) 0.3 th/mm3 (0.0-0.4); Eos % (Auto) 3.2 % (0.0-4.0); Hematocrit 32.1 % (35.0-46.0); Hemoglobin 10.9 gm/dL (11.6-15.3); Lymph # (Auto) 1.9 th/mm3 (1.0-4.8); Lymph % (Auto) 23.6 % (9.0-44.0); Mean Corpuscular Hemoglobin 29.5 pg (27.0-34.0); Mean Corpuscular Volume 86.6 fL (80.0-100.0); Mean Platelet Volume 8.7 fL (7.0-11.0); Mono % (Auto) 11.9 % (0.0-8.0); Neut # (Auto) 4.8 th/mm3 (1.8-7.7); Neut % (Auto) 60.1 % (16.0-70.0); Platelet Count 325 th/mm3 (150-450); Red Cell Distribution Width 14.1 % (11.6-17.2)
[2018-03-17 07:51] LABS: Anion Gap 11 meq/L (5-15); Blood Urea Nitrogen 11 mg/dL (7-18); Calcium 8.8 mg/dL (8.5-10.1); Carbon Dioxide 22.8 meq/L (21.0-32.0); Chloride 96 meq/L (98-107); Glomerular Filtration Rate Greater Than 89 mL/min (>89); Glucose,Random 75 mg/dL (74-106); Potassium 4.3 meq/L (3.5-5.1); Sodium 130 meq/L (136-145)
--- NOTE | 2018-03-17 11:01 | P.HPFP ---
History of Present Illness Primary Care Physician: James Thornton MD History of Present Illness: Ms Morgan is an 82-year-old female with a history of dementia, alcoholism, and recent UTI treated with a two-week course of unknown antibiotic, who presented to the ED with her daughter after daughter found the patient on ground. Daughter reports mom has been becoming weaker and weaker which started a month ago, she also reports frequent and repeated falls in the last 2 months. After finding mother on ground daughter attempted to lift the patient and while trying to pick her up the patient fell forward and hit her forehead against the wall. Daughter reports no loss of consciousness. According to the patient she was trying to picker a litter box on the ground and denies falling. It is unknown how long the patient was on the ground. Her daughter states the patient has not been eating very much lately and according to the patient she had not eaten since yesterday. Patient has history of alcohol abuse, daughter also reports that the patient has been sober for the last 6 years but just 2 weeks ago the patient asked her son to open up a bottle of wine for her, the son refused and took the alcohol with him to get it out of the house. Daughter denies any smell of alcohol on the mother's breath when she found her on the ground. During her period of alcoholism the patient was drinking 2 bottles of vodka a day and this occurred for 10 years. Daughter reports that mother has had episodes of incontinence and has soiled herself with feces recently, which she described as liquid, as well as frequent urination. Of note, daughter Jessica is patient's legal surrogate. According to her daughter her mother lived at [facility] in [facility] for 1 year in the past. After she left [facility] in [facility] she was living in a house and now has ended up in a condo. Her daughter stated that she was considering having a nursing program manager live in the house with her mother for room and board. Her daughter and son were in the room with her today but neither one seems interested in residing with their mother. She is stable mentally today compared to her exam yesterday. - Diagnosis (1) Hyponatremia (2) Syncope (3) Altered mental state (4) Dementia (5) Hypothyroid (6) Leukocytosis (7) Weakness Inpatient Certification: I certify that the inpatient services were ordered in accordance with Medicare regulations governing the order. This includes certification that hospital inpatient services are reasonable and necessary and in the case of services not specified as inpatient-only under 42 CFR 419.22(n), that they are appropriately provided as inpatient services in accordance to with the 2-midnight benchmark under 43 CFR 412.3(e) Estimated Total Length of Stay (Days): 3 Plans for Post Hospital Care: SNF Review of Systems unobtainable due to mental condition PMFSH - History History Provided By: Patient, Family Member - Medical History Medical History: Medical History (Last Reviewed 03/17/18 @ 07:45 by Nii Fierro) Anxiety Dementia Femur fracture, left Hypertension Hypothyroid Urinary tract infection - Tobacco History Second Hand Smoke Exposure: Yes Smoking Status: Never smoker - Alcohol History How Often Do You Have a Drink Containing Alcohol: 2 to 3 times a week - Substance Use History Substance History: Past History - Travel History Recent Travel in the [place] Within the Last 8 Weeks: No Recent Travel Out of the Country Within the Last 8 Weeks: No - Immunization History Tetanus Immunization: Unsure Hx Influenza Vaccine This Season: No Medications and Allergies Active Medications: Active Medications Acetaminophen (Tylenol) 650 mg PO Q4H PRN PRN Reason: Temp > 100.4 Donepezil HCl (Aricept) 5 mg PO DAILY [facility] Famotidine (Pepcid) 20 mg PO DAILY [facility] Lactobacillus Acidophilus (Lactinex) 1 tab PO TID [facility] Last Admin: 03/16/18 18:05 Dose: 1 tab Levothyroxine Sodium (Synthroid) 25 mcg PO DAILY@0600 [facility] Last Admin: 03/17/18 06:19 Dose: 25 mcg Lorazepam (Ativan) 1 mg PO [facility] Last Admin: 03/16/18 23:21 Dose: 1 mg Losartan Potassium (Cozaar) 100 mg PO DAILY [facility] Nebivolol (Bystolic) 5 mg PO DAILY [facility] Ondansetron HCl (Zofran Odt) 4 mg PO Q6H PRN PRN Reason: NAUSEA OR VOMITING Senna/Docusate Sodium (Anyi-Colace) 1 tab PO BID PRN PRN Reason: CONSTIPATION Tolterodine Tartrate (Detrol La) 2 mg PO [facility] Last Admin: 03/16/18 23:21 Dose: 2 mg Allergies Allergy/AdvReac Type Severity Reaction Status Date / Time No Known Allergies Allergy Verified 03/16/18 09:23 Home Medications Medication Instructions Recorded Confirmed Type donepezil 5 mg PO DAILY 03/16/18 03/16/18 History levothyroxine 25 mcg PO DAILY 03/16/18 03/16/18 History lorazepam 1 mg PO HS 03/16/18 03/16/18 History mirabegron [Myrbetriq] 25 mg PO HS 03/16/18 03/16/18 History nebivolol 5 mg PO DAILY 03/16/18 03/16/18 History olmesartan 40 mg PO DAILY 03/16/18 03/16/18 History ranitidine HCl 150 mg PO DAILY 03/16/18 03/16/18 History Exam Vital signs: Vital Signs 03/16/18 12:22 03/16/18 16:46 03/16/18 20:00 Temperature 99.1 F 98.1 F Pulse Rate 66 80 65 Respiratory Rate 17 16 17 Blood Pressure 127/59 L 142/62 H 152/66 H Pulse Oximetry 96 97 95 03/16/18 23:30 03/17/18 01:48 03/17/18 04:00 Temperature 99.4 F 98.1 F Pulse Rate 80 87 88 Respiratory Rate 16 15 Blood Pressure 156/70 H 144/66 H Pulse Oximetry 95 96 03/17/18 07:40 03/17/18 08:00 Temperature 97.5 F L Pulse Rate 137 H 74 Respiratory Rate 16 Blood Pressure 157/67 H Pulse Oximetry Intake & Output 03/16/18 03/17/18 03/17/18 18:59 06:59 18:59 Weight 50.7 kg Other: # Voids 1 Date of Last Bowel Movement 03/16/18 03/16/18 Weight On Admission 50.7 kg - Constitutional no acute distress, thin, cooperative - Routine HEENT Exam Head: Present: normocephalic, atraumatic. Absent: cushingoid faces, facial swelling Eye: Present: EOMI. Absent: scleral injection, periorbital swelling, periorbital tenderness, nystagmus ENT: Present: mucous membranes moist, oropharynx clear, external ear normal - Routine Neck Exam Present: supple, trachea midline. Absent: meningismus - Routine Chest/Breast/Axilla Exam Chest wall: Absent: tenderness - Routine Respiratory Exam Present: CTA bilaterally. Absent: accessory muscle use, patient mechanically ventilated, decreased breath sounds, prolonged expiratory phase, rales, respiratory distress, rhonchi, stridor, distant breath sounds - Routine Cardiovascular Exam Present: RRR. Absent: murmur, gallop, rubs, bradycardia, tachycardia - Routine Abdominal Exam Present: soft, normoactive bowel sounds. Absent: tenderness, distended, rebound , guarding, firm, rigid - Routine Extremities Exam Present: full ROM. Absent: cyanosis, clubbing, edema, calf tenderness, palpable cord, amputation - Routine Skin Exam Present: intact, dry. Absent: cyanosis, erythema, pallor, mottling, petechiae - Routine Neurological Exam Present: alert, CN II-XII intact, altered mental status, moving all extremities , normal tone. Absent: oriented X3, sensory deficit, motor deficit, clonus Results - Labs Result diagrams: 03/17/18 06:05 03/17/18 06:05 Abnormal lab results 03/16/18 03/17/18 03/17/18 Range/Units 17:07 00:03 06:05 RBC 3.70 L (4.00-5.30) mil/mm3 Hgb 10.9 L (11.6-15.3) gm/dL Hct 32.1 L (35.0-46.0) % [place] % (Auto) 11.9 H (0.0-8.0) % [place] # (Auto) 1.0 H (0.0-0.9) th/mm3 Sodium 129 L (136-145) meq/L Chloride 96 L (98-107) meq/L Estimated GFR 84 L (>89) mL/min Total Creatine Kinase 275 H (26-192) U/L CK-MB (CK-2) 8.2 H 5.2 H (0.5-3.6) ng/mL Troponin I Less than 0.02 L Less than 0.02 L (0.02-0.05) ng/mL Total Protein 6.3 L (6.4-8.2) g/dL Albumin 3.1 L (3.4-5.0) g/dL 03/17/18 Range/Units 06:05 RBC (4.00-5.30) mil/mm3 Hgb (11.6-15.3) gm/dL Hct (35.0-46.0) % [place] % (Auto) (0.0-8.0) % [place] # (Auto) (0.0-0.9) th/mm3 Sodium 130 L (136-145) meq/L Chloride 96 L (98-107) meq/L Estimated GFR (>89) mL/min Total Creatine Kinase (26-192) U/L CK-MB (CK-2) (0.5-3.6) ng/mL Troponin I (0.02-0.05) ng/mL Total Protein (6.4-8.2) g/dL Albumin (3.4-5.0) g/dL Short CBC 03/17/18 Range/Units 06:05 WBC 8.0 (4.0-11.0) th/mm3 Hgb 10.9 L (11.6-15.3) gm/dL Hct 32.1 L (35.0-46.0) % Plt Count 325 (150-450) th/mm3 BMP 03/16/18 03/17/18 17:07 06:05 Sodium 129 L 130 L Potassium 4.8 4.3 Chloride 96 L 96 L Carbon Dioxide 22.4 22.8 BUN 13 11 Creatinine 0.67 0.57 Calcium 8.8 8.8 Cardiac Enzymes 03/16/18 03/16/18 03/17/18 Range/Units 09:40 17:07 00:03 Total Creatine Kinase Cancelled Cancelled 275 H CK-MB (CK-2) 8.2 H 5.2 H (0.5-3.6) ng/mL Troponin I Less than 0.02 L Less than 0.02 L (0.02-0.05) ng/mL Liver Function 03/16/18 Range/Units 17:07 Total Bilirubin 0.4 (0.2-1.0) mg/dL AST 28 (15-37) U/L ALT 33 (10-53) U/L Alkaline Phosphatase 70 (45-117) U/L Albumin 3.1 L (3.4-5.0) g/dL - Imaging Impressions Carotid Doppler Study 03/16/18 00:00 CONCLUSION: 1. Right Internal Carotid Artery: Findings indicate <50% stenosis. 2. Left Internal Carotid Artery: Findings indicate <50% stenosis. 3. At times, irregular heart rate is documented. Suggest correlating with EKG. Head CT 03/16/18 09:23 CONCLUSION: Stable noncontrast head CT. No acute intracranial abnormality is identified. Caprini VTE Risk Assessment Caprini VTE Risk Assessment: Moderate/High Risk (score >= 2) Caprini Risk Assessment Model: Point Value = 1 Point Value = 2 Point Value = 3 Point Value = 5 Age 41-60 Minor surgery BMI > 25 kg/m2 Swollen legs Varicose veins or History of unexplained or recurrent spontaneous Oral contraceptives or hormone replacement Sepsis (< 1 month) Serious lung disease, including pneumonia (< 1 month) Abnormal pulmonary function Acute myocardial infarction Congestive heart failure (< 1 month) History of inflammatory bowel disease Medical patient at bed rest Age 61-74 Arthroscopic surgery Major open surgery (> 45 min) Laparoscopic surgery (> 45 min) Malignancy Confined to bed (> 72 hours) Immobilizing plaster cast Central venous access Age >= 75 History of VTE Family history of VTE Factor V Leiden Prothrombin [id number] Lupus anticoagulant Anticardiolipin antibodies Elevated serum homocysteine Heparin-induced thrombocytopenia Other congenital or acquired thrombophilia Stroke (< 1 month) Elective arthroplasty Hip, pelvis, or leg fracture Acute spinal cord injury (< 1 month) Prophylaxis Regimen: Total Risk Factor Score Risk Level Prophylaxis Regimen 0-1 Low Early ambulation 2 Moderate Order ONE of the following: *Sequential Compression Device (SCD) *Heparin 5000 units SQ BID 3-4 Higher Order ONE of the following medications: *Heparin 5000 units SQ TID *Enoxaparin/Lovenox 40 mg SQ daily (WT < 150 kg, CrCl > 30 mL/min) *Enoxaparin/Lovenox 30 mg SQ daily (WT < 150 kg, CrCl > 10-29 mL/min) *Enoxaparin/Lovenox 30 mg SQ BID (WT < 150 kg, CrCl > 30 mL/min) AND/OR *Sequential Compression Device (SCD) 5 or more Highest Order ONE of the following medications: *Heparin 5000 units SQ TID (Preferred with Epidurals) *Enoxaparin/Lovenox 40 mg SQ daily (WT < 150 kg, CrCl > 30 mL/min) *Enoxaparin/Lovenox 30 mg SQ daily (WT < 150 kg, CrCl > 10-29 mL/min) *Enoxaparin/Lovenox 30 mg SQ BID (WT < 150 kg, CrCl > 30 mL/min) AND *Sequential Compression Device (SCD) Assessment and Plan - Assessment (1) Hyponatremia Code(s): E87.1 - Hypo-osmolality and hyponatremia Status: Acute Plan: Patient with dementia presents with recent increase in change in mental status according to daughter. Daughter reports increased confusion and frequent falls. On admission patient had a sodium of 129. Recent confusion likely do due to hyponatremia. Patient reports not eating since yesterday and daughter reports decreased appetite. - Free fluid restriction to 1500 mL per day - Monitor BMP daily, trend sodium - Frequent neuro checks - Fall precautions -Unsure exactly why she is hyponatremic at this time and unable to get any history from the patient. She is improved on her sodium today. (2) Syncope Code(s): R55 - Syncope and collapse Status: Acute Plan: This patient has a two-month history of frequent falls, and was found by daughter on the ground. The time on the ground was unknown. Patient does not know how she is on the ground but believes it was due to trying to bend down to get the cat litter. Patient is poor historian and confused throughout the interview. Alert and oriented only to self. Possible stroke unlikely due to no neurological deficits and no abnormalities noted on CT of the head versus ACS. ACS unlikely, Patient experienced no chest pain in the ED troponins were negative, EKG was normal, and echo is pending. Will look over her medications to see if they could be causing some orthostatic hypotension or other problems (3) Altered mental state Code(s): R41.82 - Altered mental status, unspecified Status: Acute Plan: This patient has a history of Alzheimer's dementia and according to daughter is her altered mental status is below baseline. In the ED patient was confused and recollection of events was inconsistent. Patient is currently under donezepil treatment at home. Hyponatremia to be likely cause of exacerbated altered mental status from baseline. Patient has no gross motor neurological deficit. Only motor deficit her left arm does not raise above the plane of the shoulder. Currently no acute signs of stroke. Noncontrast CT of the head showed no acute intracranial abnormality. Brain MRI scheduled and pending. Patient does have history of recent UTI, which was treated with a two-week course of an unknown antibiotic. On admission patient does not meet criteria for sepsis. White count slightly elevated at 13.4. In the ED urinalysis showed no acute process. Blood cultures pending. Patient does have history of alcohol abuse, was sober for the last 6 years but according to daughter has shown interest in alcohol the last 2 weeks by asking son open bottle of wine. Intoxication cannot be ruled out at this moment. -Follow-up with drug screen -Continue home donezepil -Follow-up with blood cultures -Frequent neuro checks -See plan above for hyponatremia (4) Dementia Code(s): F03.90 - Unspecified dementia without behavioral disturbance Status: Acute Plan: This patient has a history of Alzheimer's dementia. According to daughter patient is not altered mental status away from baseline. At home patient was treated with donezepil. This patient currently lives alone and suffered multiple falls and physical exam has several abrasions and wounds on these and lower legs bilaterally. Patient also has stage I sacral ulcer indicating little to no ambulation. PT and OT evaluation recommendations appreciated. Patient will continue home regimen while inpatient. - Continue donezepil - Monitor for any changes in baseline mental status -Follow OT and PT recommendations -Consult case management for possible placement (5) Hypothyroid Code(s): E03.9 - Hypothyroidism, unspecified Status: Acute Plan: Patient has history of hypothyroid disease. TSH in the ED was 2.91. Patient not currently on the levothyroxine regimen at home. No indication for thyroid hormone replacement at this time. Unsure if she actually takes her medications at home (6) Leukocytosis Code(s): D72.829 - Elevated white blood cell count, unspecified Status: Acute Plan: Patient has elevated white count of 13.4 and admission. On admission patient was not tachycardic, febrile, or tachypneic. Patient does not meet criteria for sepsis, and there is currently no source of infection. Patient has history of prior UTI treated with unknown antibiotic which resolved 2 weeks ago. UA in ED showed no acute process. Chest x-ray showed no acute cardiopulmonary process. Likely cause of leukocytosis is a stress reaction. -Continue to monitor vitals -Continue to trend white count -Workup if patient spikes fever (7) Weakness Code(s): R53.1 - Weakness Status: Acute Plan: See plan above for hyponatremia and altered mental status. H&P: Quality - VTE Deep Vein Thrombosis/Pulmonary Embolism Present on Admission: No (3) Altered mental state Qualifiers: Altered mental status type: disorientation Qualified Code(s): R41.0 - Disorientation, unspecified (5) Hypothyroid Qualifiers: Hypothyroidism type: acquired Qualified Code(s): E03.9 - Hypothyroidism, unspecified (6) Leukocytosis Qualifiers: Leukocytosis type: unspecified Qualified Code(s): D72.829 - Elevated white blood cell count, unspecified
[2018-03-17] MEDS: Lactobacillus Acidophilus/L. Spores Tablet PO SCH ×3 (11:49→20:09)
[2018-03-17] MEDS: Famotidine 20 MG Tablet PO SCH (11:49)
[2018-03-17] MEDS ORDERED: Gadobutrol PF 10 MMOL/10 ML Vial (for RAD) IV.SIG ONE (15:28)
--- NOTE | 2018-03-17 16:37 | MR ---
EXAM DATE: 03/17/2018 3:38 PM EDT AGE/SEX: 82 years / Female INDICATIONS: Slurred speech. Weakness. CLINICAL DATA: This is the patient's subsequent encounter. Patient reports that signs and symptoms h ave been present for 2 days and indicates a pain score of 0/10. MEDICAL/SURGICAL HISTORY: Hypertension. dementia. . Left leg ORIF COMPARISON: POI, MR BRAIN W/O CONTRAST, 02/01/2016. C, CT HEAD W/O CONTRAST, 03/16/2018. . TECHNIQUE: Multiplanar, multisequence examination of the brain was performed without and with 5 ml Ga davist (gadobutrol) contrast as a single exam dose. FINDINGS: There is no evidence for intracranial hemorrhage, mass effect, mass lesions, edema, or extra-axial fl uid collections. The ventricles are prominent probably due to atrophic changes. There are no signs of acute infarction for technique. The diffusion portion, and postcontrast portion are unremarkable. Moderate degree of brain atrophy is seen. Slight periventricular white matter changes are seen nonsp ecific mostly consistent with chronic small vessel ischemic changes. CONCLUSION: Chronic small vessel ischemic and atrophic changes. Electronically signed by: Darin Altamirano MD 03/17/2018 4:36 PM EDT
[2018-03-17] MEDS: Tolterodine Tartrate LA 2 MG Capsule PO SCH (20:07)
[2018-03-17] MEDS: LORazepam 1 MG Tablet PO SCH (20:07)
[2018-03-18] MEDS: Lactobacillus Acidophilus/L. Spores Tablet PO SCH ×3 (08:30→17:18)
[2018-03-18] MEDS: Famotidine 20 MG Tablet PO SCH (08:31)
--- NOTE | 2018-03-18 11:58 | ECHRPT ---
Indication: CVA/TIA CONCLUSIONS Normal left ventricular size. Mild concentric left ventricular hypertrophy. The left ventricular systolic function is normal with an estimated ejection fraction in the range of 60-65%. Mitral annular calcification is present. There is mild tricuspid valve regurgitation. The estimated pulmonary arterial pressure is 33 mmHg. Trivial pulmonary valve regurgitation. BP: / HR: Rhythm: Technical Quality: FINDINGS LEFT VENTRICLE Normal left ventricular size. Mild concentric left ventricular hypertrophy. The left ventricular systolic function is normal with an estimated ejection fraction in the range of 60-65%. RIGHT VENTRICLE Normal right ventricular size and systolic function. LEFT ATRIUM The left atrial size is normal. RIGHT ATRIUM The right atrial size is normal. ATRIAL SEPTUM Normal atrial septal thickness without atrial level shunting by limited color doppler interrogation. AORTA The aortic root and proximal ascending aorta are normal in size on limited imaging. MITRAL VALVE Mitral annular calcification is present. AORTIC VALVE Trileaflet aortic valve. No aortic valve stenosis or regurgitation. TRICUSPID VALVE There is mild tricuspid valve regurgitation. The estimated pulmonary arterial pressure is 33 mmHg. PULMONARY VALVE Trivial pulmonary valve regurgitation. VESSELS The inferior vena cava is normal in size. PERICARDIUM No pericardial effusion. Thomas Mckeon MD, FACC, FSCAI (Electronically Signed) Final Date:18 March 2018 11:57
[2018-03-18 15:55] LABS: Hematocrit 33.2 % (35.0-46.0); Hemoglobin 11.3 gm/dL (11.6-15.3); Mean Corpuscular HGB Conc 34.1 % (32.0-36.0); Mean Corpuscular Hemoglobin 29.6 pg (27.0-34.0); Mean Corpuscular Volume 86.8 fL (80.0-100.0); Mean Platelet Volume 8.5 fL (7.0-11.0); Platelet Count 383 th/mm3 (150-450); Red Blood Count 3.82 mil/mm3 (4.00-5.30); Red Cell Distribution Width 14.2 % (11.6-17.2); White Blood Count 9.6 th/mm3 (4.0-11.0)
--- NOTE | 2018-03-18 16:44 | P.PNFP ---
Subjective Interval history: Delayed entry Seen and examined at bedside this morning. No acute events overnight. Patient reports that she feels fine. Has no complaints. She is eating well. She is alert and oriented x1 this morning (to self ). <Teodora Walker - 03/18/18 19:59> Results - Labs Result diagrams: 03/18/18 14:29 03/19/18 05:43 <Hellen Posadas - 03/21/18 16:15> Abnormal lab results 03/18/18 Range/Units 14:29 RBC 3.82 L (4.00-5.30) mil/mm3 Hgb 11.3 L (11.6-15.3) gm/dL Hct 33.2 L (35.0-46.0) % Short CBC 03/18/18 Range/Units 14:29 WBC 9.6 (4.0-11.0) th/mm3 Hgb 11.3 L (11.6-15.3) gm/dL Hct 33.2 L (35.0-46.0) % Plt Count 383 (150-450) th/mm3 <Teodora Walker - 03/18/18 16:43> Physical Exam Vital signs: Vital Signs 03/17/18 19:47 03/17/18 20:10 03/17/18 21:56 Temperature 98.2 F Pulse Rate 65 Respiratory Rate 16 Blood Pressure 161/71 H Pulse Oximetry 98 98 98 03/17/18 23:52 03/18/18 01:00 03/18/18 03:45 Temperature 97.9 F 98.4 F Pulse Rate 75 76 84 Respiratory Rate 16 16 Blood Pressure 143/67 H 170/73 H Pulse Oximetry 94 L 95 03/18/18 08:00 03/18/18 12:00 03/18/18 15:13 Temperature 98.1 F 97.4 F L Pulse Rate 49 L 63 75 Respiratory Rate 18 18 Blood Pressure 155/67 H 154/67 H Pulse Oximetry 98 Intake & Output 03/17/18 03/18/18 03/18/18 18:59 06:59 18:59 Intake Total 500 / 500 Output Total 0 / 0 Balance 0 / 0 500 / 500 Intake: Oral 500 / 500 Output: Stool 0 / 0 Other: # Voids 2 Date of Last Bowel Movement 03/16/18 <Teodora Walker 03/18/18 16:43> - Constitutional no acute distress <Teodora Walker 03/18/18 19:59> - Routine HEENT Exam Eye: Present: EOMI, PERRL <Teodora Walker 03/18/18 19:59> ENT: Present: mucous membranes moist <Teodora Walker 03/18/18 19:59> - Routine Neck Exam Present: supple, full ROM. Absent: JVD <Teodora Walker 03/18/18 19:59> - Routine Respiratory Exam Present: CTA bilaterally. Absent: accessory muscle use <Teodora Walker 19:59> - Routine Cardiovascular Exam Present: RRR, S1, S2. Absent: murmur, gallop, rubs <Teodora Walker 19:59> - Routine Abdominal Exam Present: soft, normoactive bowel sounds. Absent: tenderness, distended, rebound <Teodora Walker 03/18/18 19:59> - Routine Extremities Exam Present: pulses intact, normal capillary refill. Absent: cyanosis, clubbing, edema <Teodora Walker 03/18/18 19:59> - Routine Skin Exam Present: intact <Teodora Walker 03/18/18 19:59> - Routine Neurological Exam Present: alert (aaox1) <Teodora Walker 03/18/18 19:59> - Routine Psychiatric Exam Present: normal affect <Teoodra Walker 03/18/18 19:59> Assessment and Plan - Assessment (1) Hyponatremia Code(s): E87.1 - Hypo-osmolality and hyponatremia Status: Acute (2) Syncope Code(s): R55 - Syncope and collapse Status: Acute (3) Altered mental state Code(s): R41.82 - Altered mental status, unspecified Status: Acute (4) Dementia Code(s): F03.90 - Unspecified dementia without behavioral disturbance Status: Acute (5) Hypothyroid Code(s): E03.9 - Hypothyroidism, unspecified Status: Acute (6) Nutrition, metabolism, and development symptoms Code(s): R63.8 - Other symptoms and signs concerning food and fluid intake Status: Acute <Hellen Posadas - 03/21/18 16:15> (1) Hyponatremia Code(s): E87.1 - Hypo-osmolality and hyponatremia Status: Acute Plan: Patient with dementia presents with recent increase in change in mental status according to daughter. Daughter reports increased confusion and frequent falls. On admission patient had a sodium of 129. Recent confusion likely do due to hyponatremia. Patient reports not eating since yesterday and daughter reports decreased appetite. - Free fluid restriction to 1500 mL per day - Monitor BMP daily, ( Patient refused BMP this am), lab contacted and advised to retry obtaining BMP to trend sodium - Frequent neuro checks - Fall precautions (2) Syncope Code(s): R55 - Syncope and collapse Status: Acute Plan: This patient has a two-month history of frequent falls, and was found by daughter on the ground. The time on the ground was unknown. Patient does not know how she is on the ground but believes it was due to trying to bend down to get the cat litter. Patient is poor historian and confused throughout the interview. Alert and oriented only to self. Possible stroke unlikely due to no neurological deficits and no abnormalities noted on CT of the head versus ACS. ACS unlikely, Patient experienced no chest pain in the ED troponins were negative, EKG was normal, Will look over her medications to see if they could be causing some orthostatic hypotension or other problems -MRI brain negative for ischemic stroke, bleeding or masses -echo: Ejection fraction of 60-65%, mitral annular calcification and mild right cuspid valve regurgitation. (3) Altered mental state Code(s): R41.82 - Altered mental status, unspecified Status: Acute Plan: This patient has a history of Alzheimer's dementia and according to daughter is her altered mental status is below baseline. In the ED patient was confused and recollection of events was inconsistent. Patient is currently under donezepil treatment at home. Hyponatremia to be likely cause of exacerbated altered mental status from baseline. Patient has no gross motor neurological deficit. Only motor deficit her left arm does not raise above the plane of the shoulder. Currently no acute signs of stroke. Noncontrast CT of the head showed no acute intracranial abnormality. Patient does have history of recent UTI, which was treated with a two-week course of an unknown antibiotic. On admission patient does not meet criteria for sepsis. White count slightly elevated at 13.4. In the ED urinalysis showed no acute process. Blood cultures pending. Patient does have history of alcohol abuse, was sober for the last 6 years but according to daughter has shown interest in alcohol the last 2 weeks by asking son open bottle of wine. Intoxication cannot be ruled out at this moment. -drug screen with alcohol level of less than 3 -Continue home donezepil - blood cultures: No growth times 2 days -MRI brain negative for ischemic stroke, bleeding or masses -Frequent neuro checks -See plan above for hyponatremia (4) Dementia Code(s): F03.90 - Unspecified dementia without behavioral disturbance Status: Acute Plan: This patient has a history of Alzheimer's dementia. According to daughter patient is not altered mental status away from baseline. At home patient was treated with donezepil. This patient currently lives alone and suffered multiple falls and physical exam has several abrasions and wounds on these and lower legs bilaterally. Patient also has stage I sacral ulcer indicating little to no ambulation. PT and OT evaluation recommendations appreciated. Patient will continue home regimen while inpatient. - Continue donezepil - Monitor for any changes in baseline mental status -Follow OT and PT recommendations -Consult case management for possible placement (5) Hypothyroid Code(s): E03.9 - Hypothyroidism, unspecified Status: Acute Plan: Patient has history of hypothyroid disease. TSH in the ED was 2.91. Patient not currently on the levothyroxine regimen at home. No indication for thyroid hormone replacement at this time. Unsure if she actually takes her medications at home (6) Leukocytosis Code(s): D72.829 - Elevated white blood cell count, unspecified Status: Resolved Plan: Patient has elevated white count of 13.4 and admission. On admission patient was not tachycardic, febrile, or tachypneic. Patient does not meet criteria for sepsis, and there is currently no source of infection. Patient has history of prior UTI treated with unknown antibiotic which resolved 2 weeks ago. UA in ED showed no acute process. Chest x-ray showed no acute cardiopulmonary process. Likely cause of leukocytosis is a stress reaction and has now resolved. -Continue to monitor vitals -Continue to trend white count -Workup if patient spikes fever (7) Weakness Code(s): R53.1 - Weakness Status: Acute Plan: See plan above for hyponatremia and altered mental status. (8) Nutrition, metabolism, and development symptoms Code(s): R63.8 - Other symptoms and signs concerning food and fluid intake Status: Acute Plan: Fluids: Not indicated at this time Electrolytes: replete as needed Nutrition: Regular diet DVT prophylaxis: SCDs Disposition: Pending SNF placement, patient has been accepted to [facility] , anticipate discharge tomorrow <Teodora Walker - 03/18/18 19:48> - Attending Attestation The exam, history, and the medical decision-making described in the above note were completed with the assistance of the resident physician. I reviewed and agree with the findings presented. I attest that I had a [id number] encounter with the patient on the same day, and personally performed and documented my assessment and findings in the medical record. Ms Morgan is ready to go to her snf today <Hellen Posadas - 03/21/18 16:15> <Teodora Walker D - Last Filed: 03/18/18 19:48> (3) Altered mental state Qualifiers: Altered mental status type: disorientation Qualified Code(s): R41.0 - Disorientation, unspecified (5) Hypothyroid Qualifiers: Hypothyroidism type: acquired Qualified Code(s): E03.9 - Hypothyroidism, unspecified (6) Leukocytosis Qualifiers: Leukocytosis type: unspecified Qualified Code(s): D72.829 - Elevated white blood cell count, unspecified <Hellen Posadas - Last Filed: 03/21/18 16:15> (3) Altered mental state Qualifiers: Altered mental status type: disorientation Qualified Code(s): R41.0 - Disorientation, unspecified (4) Dementia Qualifiers: Dementia type: Alzheimer's disease Alzheimer's disease onset: late-onset Dementia behavioral disturbance: without behavioral disturbance Qualified Code( s): G30.1 - Alzheimer's disease with late onset; F02.80 - Dementia in other diseases classified elsewhere without behavioral disturbance (5) Hypothyroid Qualifiers: Hypothyroidism type: acquired Qualified Code(s): E03.9 - Hypothyroidism, unspecified <Teodora Walker D - Last Filed: 03/18/18 19:48> (3) Altered mental state Qualifiers: Altered mental status type: disorientation Qualified Code(s): R41.0 - Disorientation, unspecified (5) Hypothyroid Qualifiers: Hypothyroidism type: acquired Qualified Code(s): E03.9 - Hypothyroidism, unspecified (6) Leukocytosis Qualifiers: Leukocytosis type: unspecified Qualified Code(s): D72.829 - Elevated white blood cell count, unspecified <Hellen Posadas M - Last Filed: 03/21/18 16:15> (3) Altered mental state Qualifiers: Altered mental status type: disorientation Qualified Code(s): R41.0 - Disorientation, unspecified (4) Dementia Qualifiers: Dementia type: Alzheimer's disease Alzheimer's disease onset: late-onset Dementia behavioral disturbance: without behavioral disturbance Qualified Code( s): G30.1 - Alzheimer's disease with late onset; F02.80 - Dementia in other diseases classified elsewhere without behavioral disturbance (5) Hypothyroid Qualifiers: Hypothyroidism type: acquired Qualified Code(s): E03.9 - Hypothyroidism, unspecified
[2018-03-18 21:14] LABS: Calcium 8.8 mg/dL (8.5-10.1); Carbon Dioxide 21.7 meq/L (21.0-32.0); Potassium 4.3 meq/L (3.5-5.1)
[2018-03-18] MEDS: LORazepam 1 MG Tablet PO SCH (21:24)
[2018-03-19] MEDS: Tolterodine Tartrate LA 2 MG Capsule PO SCH (04:44)
[2018-03-19 07:10] LABS: Anion Gap 8 meq/L (5-15); Calcium 8.5 mg/dL (8.5-10.1); Carbon Dioxide 25.3 meq/L (21.0-32.0); Chloride 95 meq/L (98-107); Glomerular Filtration Rate Greater Than 89 mL/min (>89); Glucose,Random 88 mg/dL (74-106); Sodium 128 meq/L (136-145)
[2018-03-19 07:15] LABS: Blood Urea Nitrogen 9 mg/dL (7-18)
--- NOTE | 2018-03-19 09:28 | P.PNFP ---
Subjective Interval history: Ms Morgan has a negative review of systems this morning. She remains confused. She does know she is going to rehab. Yesterday she did not think that the breakfast in the room in front of her with hers. Today she is hungry. She is happy to be discharged from the hospital today. Results - Labs Result diagrams: 03/18/18 14:29 03/19/18 05:43 Abnormal lab results 03/18/18 03/18/18 03/19/18 Range/Units 14:29 18:37 05:43 RBC 3.82 L (4.00-5.30) mil/mm3 Hgb 11.3 L (11.6-15.3) gm/dL Hct 33.2 L (35.0-46.0) % Sodium 127 L 128 L (136-145) meq/L Chloride 93 L 95 L (98-107) meq/L Estimated GFR 77 L (>89) mL/min Short CBC 03/18/18 Range/Units 14:29 WBC 9.6 (4.0-11.0) th/mm3 Hgb 11.3 L (11.6-15.3) gm/dL Hct 33.2 L (35.0-46.0) % Plt Count 383 (150-450) th/mm3 BMP 03/18/18 03/19/18 18:37 05:43 Sodium 127 L 128 L Potassium 4.3 4.0 Chloride 93 L 95 L Carbon Dioxide 21.7 25.3 BUN 12 9 Creatinine 0.72 0.57 Calcium 8.8 8.5 Physical Exam Vital signs: Vital Signs 03/18/18 12:00 03/18/18 15:13 03/18/18 16:00 Temperature 97.4 F L 98.2 F Pulse Rate 63 75 64 Respiratory Rate 18 16 Blood Pressure 154/67 H 150/68 H Pulse Oximetry 97 03/18/18 20:00 03/19/18 00:00 03/19/18 04:00 Temperature 98.1 F 98.4 F 98.2 F Pulse Rate 71 52 L 77 Respiratory Rate 18 18 20 Blood Pressure 179/77 H 163/88 H 153/65 H Pulse Oximetry 95 96 96 Intake & Output 03/18/18 03/19/18 03/19/18 18:59 06:59 18:59 Intake Total 740 / 740 380 / 380 Balance 740 / 740 380 / 380 Intake: Oral 740 / 740 380 / 380 Other: # Voids 3 - Constitutional no acute distress, thin, cooperative - Routine HEENT Exam Head: Present: normocephalic, atraumatic. Absent: cushingoid faces, hematoma, facial swelling Eye: Present: EOMI. Absent: conjunctival icterus, scleral injection, periorbital swelling, nystagmus, exophthalmos, proptosis ENT: Present: external ear normal. Absent: septal deviation - Routine Neck Exam Present: supple, full ROM, trachea midline - Routine Respiratory Exam Present: CTA bilaterally. Absent: accessory muscle use, patient mechanically ventilated, decreased breath sounds, prolonged expiratory phase, rales, respiratory distress, rhonchi, wheezes, crackles - Routine Cardiovascular Exam Present: RRR. Absent: bradycardia, tachycardia, irregular rhythm, irregularly irregular - Routine Abdominal Exam Present: soft. Absent: tenderness, distended, rebound, guarding, firm - Routine Extremities Exam Present: full ROM. Absent: cyanosis, clubbing, edema, extremity cold to touch - Routine Skin Exam Present: intact, dry. Absent: cyanosis, erythema, mottling, petechiae - Routine Neurological Exam Present: alert, moving all extremities, normal tone. Absent: oriented X3, sensory deficit, motor deficit - Detailed Neurological Exam: Coma Scale Eye Opening: Spontaneous Verbal Response: Confused Motor Response: Obey commands Ama Coma Scale Total: 14 - Routine Psychiatric Exam Present: normal affect, cooperative. Absent: normal thought process, good insight, good judgment, depressed Assessment and Plan - Assessment (1) Hyponatremia Code(s): E87.1 - Hypo-osmolality and hyponatremia Status: Acute Plan: Patient with dementia presented with recent increase in change in mental status according to daughter. Daughter reports increased confusion and frequent falls. On admission patient had a sodium of 129. Recent confusion likely do due to hyponatremia. Patient reports not eating since yesterday and daughter reports decreased appetite. - Free fluid restriction to 1500 mL per day - Monitor BMP daily, ( Patient refused BMP this am), lab contacted and advised to retry obtaining BMP to trend sodium - Frequent neuro checks - Fall precautions (2) Syncope Code(s): R55 - Syncope and collapse Status: Acute Plan: This patient has a two-month history of frequent falls, and was found by daughter on the ground. The time on the ground was unknown. Patient does not know how she ended up on the ground but believes it was due to trying to bend down to get the cat litter. Patient is poor historian and confused. Alert and oriented only to self. Possible stroke unlikely due to no neurological deficits and no abnormalities noted on CT of the head versus ACS. ACS unlikely , Patient experienced no chest pain in the ED troponins were negative, EKG was normal, Will look over her medications to see if they could be causing some orthostatic hypotension or other problems. No evidence of cardiogenic syncope -MRI brain negative for ischemic stroke, bleeding or masses -echo: Ejection fraction of 60-65%, mitral annular calcification and mild right cuspid valve regurgitation. (3) Altered mental state Code(s): R41.82 - Altered mental status, unspecified Status: Acute Plan: This patient has a history of Alzheimer's dementia and according to daughter is her altered mental status is below baseline. In the ED patient was confused and recollection of events was inconsistent. Patient is currently under donezepil treatment at home. Hyponatremia to be likely cause of exacerbated altered mental status from baseline. Patient has no gross motor neurological deficit. Only motor deficit her left arm does not raise above the plane of the shoulder. Currently no acute signs of stroke. Noncontrast CT of the head showed no acute intracranial abnormality. Patient does have history of recent UTI, which was treated with a two-week course of an unknown antibiotic. On admission patient does not meet criteria for sepsis. White count slightly elevated at 13.4. In the ED urinalysis showed no acute process. Blood cultures pending. Patient does have history of alcohol abuse, was sober for the last 6 years but according to daughter has shown interest in alcohol the last 2 weeks by asking son open bottle of wine. -drug screen with alcohol level of less than 3 -Continue home donezepil - blood cultures: No growth times 2 days -MRI brain negative for ischemic stroke, bleeding or masses -Frequent neuro checks -See plan above for hyponatremia (4) Dementia Code(s): F03.90 - Unspecified dementia without behavioral disturbance Status: Acute Plan: This patient has a history of Alzheimer's dementia. According to daughter patient is not altered mental status away from baseline. At home patient was treated with donezepil. This patient currently lives alone and suffered multiple falls and physical exam has several abrasions and wounds on these and lower legs bilaterally. Patient also has stage I sacral ulcer indicating little to no ambulation. PT and OT evaluation recommendations appreciated. Patient will continue home regimen while inpatient. - Continue donezepil - Monitor for any changes in baseline mental status -Follow OT and PT recommendations -Consult case management for possible placement (5) Hypothyroid Code(s): E03.9 - Hypothyroidism, unspecified Status: Acute Plan: Patient has history of hypothyroid disease. TSH in the ED was 2.91. Patient not currently on the levothyroxine regimen at home. No indication for thyroid hormone replacement at this time. Unsure if she actually takes her medications at home (6) Leukocytosis Code(s): D72.829 - Elevated white blood cell count, unspecified Status: Resolved Plan: Patient has elevated white count of 13.4 and admission. On admission patient was not tachycardic, febrile, or tachypneic. Patient does not meet criteria for sepsis, and there is currently no source of infection. Patient has history of prior UTI treated with unknown antibiotic which resolved 2 weeks ago. UA in ED showed no acute process. Chest x-ray showed no acute cardiopulmonary process. Likely cause of leukocytosis is a stress reaction and has now resolved. -Continue to monitor vitals -Continue to trend white count -Workup if patient spikes fever (7) Nutrition, metabolism, and development symptoms Code(s): R63.8 - Other symptoms and signs concerning food and fluid intake Status: Acute Plan: Fluids: Not indicated at this time Electrolytes: replete as needed Nutrition: Regular diet DVT prophylaxis: SCDs Disposition: Pending SNF placement, patient has been accepted to [facility] , anticipate discharge today (3) Altered mental state Qualifiers: Altered mental status type: disorientation Qualified Code(s): R41.0 - Disorientation, unspecified (4) Dementia Qualifiers: Dementia type: Alzheimer's disease Alzheimer's disease onset: late-onset Dementia behavioral disturbance: without behavioral disturbance Qualified Code( s): G30.1 - Alzheimer's disease with late onset; F02.80 - Dementia in other diseases classified elsewhere without behavioral disturbance (5) Hypothyroid Qualifiers: Hypothyroidism type: acquired Qualified Code(s): E03.9 - Hypothyroidism, unspecified (6) Leukocytosis Qualifiers: Leukocytosis type: unspecified Qualified Code(s): D72.829 - Elevated white blood cell count, unspecified
[2018-03-19] MEDS: Famotidine 20 MG Tablet PO SCH (09:42)
[2018-03-19] MEDS: Lactobacillus Acidophilus/L. Spores Tablet PO SCH (09:43)
--- NOTE | 2018-03-21 00:37 | P.DS ---
Date of admission: 03/16/18 12:15 Primary care physician: James Thornton MD Brief History from admission: Ms Morgan is an 82-year-old female with a history of dementia, alcoholism, and recent UTI treated with a two-week course of unknown antibiotic, who presented to the ED with her daughter after daughter found the patient on ground. Daughter reported mom has been becoming weaker and weaker which started a month ago, she also reported frequent and repeated falls in the last 2 months. After finding mother on ground daughter attempted to lift the patient and while trying to pick her up the patient fell forward and hit her forehead against the wall. Daughter reports no loss of consciousness. 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 It was unknown how long the patient was on the ground. Her daughter stated that the patient has not been eating very much lately and according to the patient she had not eaten since the day before. Patient has history of alcohol abuse, daughter reported that the patient has been sober for the last 6 years but just 2 weeks ago the patient asked her son to open up a bottle of wine for her, the son refused and took the alcohol with him to get it out of the house. Daughter denies any smell of alcohol on the mother's breath when she found her on the ground. During her period of alcoholism the patient was drinking 2 bottles of vodka a day and this occurred for 10 years. Daughter reports that mother has had episodes of incontinence and has soiled herself with feces recently, which she described as liquid, as well as frequent urination. Of note, daughter Jessica is patient's legal surrogate. DS: Diagnosis - Discharge Diagnosis (1) Hyponatremia Status: Acute (2) Syncope Status: Acute (3) Altered mental state Status: Acute (4) Dementia Status: Acute (5) Hypothyroid Status: Acute DS: Summary Hospital Course: Patient was admitted for hyponatremia and syncope. On admission patient's labs were significant for a sodium of 129, a white count of 13.4, an elevated creatinine kinase at 275, and a lowered H/H of 11.4/33.9. In the ED the patient had urinalysis that was normal and an alcohol and drug screen with an alcohol level less than 3. The patient was admitted for hyponatremia and was put on fluid restrictions of 1500 mL per day. Patient also had a CT of the head which was negative, had negative troponins, a normal EKG, and MRI of the brain was also normal. During her hospital course she had an echocardiogram which showed an ejection fraction 60-65%, mitral annular calcification, and in mild tricuspid valve regurgitation. Patient was seen by OT and PT who recommended rehabilitation. Upon discharge patient was afebrile, had a white count of 9.6, and a sodium of 127 which now appears to be her new baseline. Patient was discharged to SNF on donezepil, levothyroxine, nebivolol, olmesartan , and ranitidine and to follow-up with her PCP. - Time Spent with Patient Total time spent providing and/or coordinating discharge services: - Quality: VTE Deep Vein Thrombosis/Pulmonary Embolism Present on Admission: No Exam Vital signs: Vital Signs 03/20/18 00:40 Temperature 98 F Pulse Rate 61 Respiratory Rate 20 Blood Pressure 177/78 H Pulse Oximetry 95 - Constitutional no acute distress, thin, cooperative - Routine HEENT Exam Head: Present: normocephalic, atraumatic. Absent: cushingoid faces, facial swelling Eye: Present: EOMI. Absent: conjunctival icterus, scleral injection, periorbital ecchymosis ENT: Present: external ear normal - Routine Neck Exam Present: supple, full ROM, trachea midline - Routine Respiratory Exam Present: CTA bilaterally. Absent: accessory muscle use, rales, respiratory distress, rhonchi, stridor, wheezes, crackles, distant breath sounds, diminished air movement - Routine Cardiovascular Exam Present: RRR, S1, S2. Absent: murmur, gallop, rubs - Routine Abdominal Exam Present: soft, normoactive bowel sounds. Absent: tenderness, distended, rebound , guarding - Routine Extremities Exam Present: full ROM. Absent: cyanosis, clubbing, edema - Routine Skin Exam Present: intact, dry. Absent: cyanosis, erythema, mottling, petechiae - Routine Neurological Exam Present: alert, moving all extremities. Absent: oriented X3, sensory deficit, motor deficit - Routine Psychiatric Exam Present: normal affect, cooperative. Absent: normal thought process, good insight, good judgment, depressed Results Procedures completed during hospitalization: None Labs on day of discharge: Preliminary micro results at discharge 03/16/18 12:15 Aerobic Blood Culture - Preliminary Blood - Peripheral No growth in 4 days Anaerobic Blood Culture - Preliminary No growth in 4 days 03/16/18 12:10 Aerobic Blood Culture - Preliminary Blood - Peripheral No growth in 4 days Anaerobic Blood Culture - Preliminary No growth in 4 days - Impressions ITS Impressions Carotid Doppler Study 03/16/18 00:00 CONCLUSION: 1. Right Internal Carotid Artery: Findings indicate <50% stenosis. 2. Left Internal Carotid Artery: Findings indicate <50% stenosis. 3. At times, irregular heart rate is documented. Suggest correlating with EKG. Chest X-Ray 03/16/18 09:23 CONCLUSION: No acute cardiopulmonary process Head CT 03/16/18 09:23 CONCLUSION: Stable noncontrast head CT. No acute intracranial abnormality is identified. Head MRI 03/17/18 00:00 CONCLUSION: Chronic small vessel ischemic and atrophic changes. Discharge Plan - Discharge Disposition Patient Disposition: 03 Discharge to SNF - Discharge Condition Condition: Stable - Discharge Order Discharge Orders: Discharge Order (Routine); Ordered 03/19/18 Ordered By: Bruno Foss - Discharge Details Anticipated Discharge Date: 03/19/18 - Physicians Team Primary Care Provider: James Thornton Attending Provider: Hellen Posadas
== END 2018-03-19 14:23 ==
LOC: NEDA 09:00 → NEPE 09:00 → OBSVTOIN 12:15 → NEDA 15:48 → NEPGCP 15:53 → N05 03-18 16:12
PROVIDERS: ADMIT Family Medicine; ATTEND Family Medicine